=== PATIENT | female | born 1950 | race Caucasian/White ===

== ENCOUNTER 2023-03-20 12:42 | Outpatient (CLI) | payer MEDICARE | END 2023-03-20 12:43 | disposition home or self-care (01) | LOC: CSHMAMMO 12:42 | PROVIDERS: ATTEND Student in an Organized Health Care Education/Training Program | DX: Z12.31 Encounter for screening mammogram for malignant neoplasm of breast (principal); M85.89 Other specified disorders of bone density and structure, multiple sites; Z78.0 Asymptomatic menopausal state | CPT/HCPCS: 77063; 77067; 77080 ==